=== PATIENT | male | born 1970 | race Hispanic/Latino ===

== ENCOUNTER 2018-04-29 11:16 | Emergency (ER) | payer OTHER ==
[~2018-04-29] VITALS: Ht 182.9 cm; Wt 87.3 kg
[~2018-04-29 11:16] MED LIST: FLEXERIL OR; LORTAB5 OR; NAPROSYN500 MG OR; NAPROXEN500 MG OR; NO HOME MEDS; SOMA350 MG PO; TYLENOL # 31 TA1 PO; ULTRAM50 MG OR
[2018-04-29 11:28] VITALS: BP 120/67
[2018-04-29 11:51] LABS: HEMATOCRIT 37.6 % (39.0-50.0); HEMOGLOBIN 12.5 g/dl (14.0-18.0); IMMATURE GRANULOCYTES 0.2 % (0.0-1.0); MEAN CELL VOLUME 92.4 fL CALC (80.0-100.0); MEAN CORPUSCULAR HGB 30.7 pG CALC (26.0-32.0); MEAN CORPUSCULAR HGB CONC 33.2 g/L CALC (32.0-36.0); NEUT# 2.14 thou/uL (1.82-7.42); RED BLOOD COUNT 4.07 mill/uL (4.70-6.10); RED CELL DISTRI WIDTH 12.4 % (11.5-15.5)
[2018-04-29 12:10] LABS: ALKALINE PHOSPHATASE 47 u/l (38-126); ANION GAP 9 (6-22 (CALC)); BILIRUBIN, TOTAL 0.5 mg/dL (0.0-1.4); BUN 12 mg/dL (9-20); BUN/CREATININE RATIO 19 (12-20 (CALC)); CARBON DIOXIDE 23 mmol/l (22-30); CHLORIDE 114 mmol/l (95-108); CREATININE 0.7 mg/dL (0.7-1.3); GFR > 60 ML/MIN (>=60 (CALC)); GFR FOR AFR.AMER. > 60 ML/MIN (>=60 (CALC)); POTASSIUM 3.6 mmol/l (3.5-5.1); SGOT/AST 10 u/l (17-59); SGPT/ALT 35 u/l (21-72); SODIUM 143 mmol/l (137-146); TOTAL PROTEIN 5.9 g/dL (6.3-8.2)
[2018-04-29 12:21] LABS: MYOGLOBIN 15 ng/mL (0 - 121)
[2018-04-29 12:53] LABS: ALBUMIN 3.3 g/dL (3.2-5.0)
== END 2018-04-29 13:51 | disposition home or self-care (01) | DRG 552 ==
LOC: ED 11:16
PROVIDERS: Emergency Medicine
DX: M54.6 Pain in thoracic spine (principal); G89.29 Other chronic pain; R55 Syncope and collapse

== ENCOUNTER 2021-08-26 23:36 | Emergency (ER) | payer OTHER ==
[~2021-08-26] VITALS: Ht 182.9 cm; Wt 88.0 kg
[2021-08-27] MEDS ORDERED: CYCLOBENZAPRINE10 MG PO (01:03)
[2021-08-27] MEDS ORDERED: NAPROXEN500 MG PO (01:03)
[2021-08-27 01:08] VITALS: BP 145/86
== END 2021-08-27 01:14 | disposition home or self-care (01) | DRG 563 ==
LOC: ED 23:36
DX: S83.92XA Sprain of unspecified site of left knee, initial encounter (principal); S80.02XA Contusion of left knee, initial encounter; M54.6 Pain in thoracic spine; V40.5XXA Car driver injured in collision with pedestrian or animal in traffic accident, initial encounter

== ENCOUNTER 2021-10-07 10:42 | Emergency (ER) | payer OTHER ==
[~2021-10-07] VITALS: Ht 30.5 cm; Wt 89.1 kg
[~2021-10-07 10:42] MED LIST changes: +CYCLOBENZAPRINE10 MG PO; +NAPROXEN500 MG PO
[2021-10-07 11:27] LABS: HEMATOCRIT 43.6 % (39.0-50.0); HEMOGLOBIN 13.9 g/dl (14.0-18.0); IMMATURE GRANULOCYTES 0.2 % (0.0-5.0); MEAN CELL VOLUME 96.9 fL CALC (80.0-100.0); MEAN CORPUSCULAR HGB 30.9 pG CALC (26.0-32.0); MEAN CORPUSCULAR HGB CONC 31.9 g/dL CAL (32.0-36.0); NEUT# 2.92 thou/uL (1.82-7.42); RED BLOOD COUNT 4.5 mill/uL (4.70-6.10); RED CELL DISTRI WIDTH 12.9 % (11.5-15.5)
[2021-10-07 12:48] LABS: ALBUMIN 3.6 g/dL (3.2-5.0); ALKALINE PHOSPHATASE 58 u/l (38-126); ANION GAP 10 (6-22 (CALC)); BILIRUBIN, TOTAL 0.5 mg/dL (0.0-1.4); BUN 11 mg/dL (9-20); BUN/CREATININE RATIO 14 (12-20 (CALC)); CARBON DIOXIDE 27 mmol/l (22-30); CHLORIDE 108 mmol/l (95-108); CREATININE 0.8 mg/dL (0.7-1.3); GFR > 60 ML/MIN (>=60 (CALC)); GFR FOR AFR.AMER. > 60 ML/MIN (>=60 (CALC)); POTASSIUM 3.6 mmol/l (3.5-5.1); SODIUM 142 mmol/l (137-146); TOTAL PROTEIN 6.8 g/dL (6.3-8.2)
[2021-10-07 12:49] LABS: SGOT/AST 23 u/l (17-59)
[2021-10-07] MEDS ORDERED: ZPAK PO (14:53)
[2021-10-07 14:58] VITALS: BP 96/63
== END 2021-10-07 15:13 | disposition home or self-care (01) ==
LOC: ED 10:42
PROVIDERS: Family Medicine
DX: R07.9 Chest pain, unspecified (principal); J06.9 Acute upper respiratory infection, unspecified; R00.1 Bradycardia, unspecified; I95.9 Hypotension, unspecified; Z20.822 Contact with and (suspected) exposure to COVID-19

== ENCOUNTER 2024-04-24 08:58 | Day surgery (SDC) | payer SELFPAY ==
[~2024-04-24] VITALS: Ht 170.2 cm; Wt 86.6 kg
[~2024-04-24 08:58] MED LIST changes: +ZPAK PO
[2024-04-24] MEDS ORDERED: FAMOTIDINE 10MG/ML 2ML SDV IV ONE (10:15)
[2024-04-24] MEDS ORDERED: LACTATED RINGER'S 1,000 ML IV ONE (10:15)
[2024-04-24 12:27] VITALS: BP 100/68
[2024-04-24] MEDS ORDERED: LIDOCAINE HCL 2% 2ML SDV IV ONE (12:43)
[2024-04-24] MEDS ORDERED: PROPOFOL 200 MG/20 ML VIAL IV ONE (12:43)
[2024-04-24] MEDS ORDERED: GLYCOPYRROLATE 0.2 MG/ML IV ONE (12:43)
== END 2024-04-24 12:35 | disposition home or self-care (01) | DRG 951 ==
LOC: ENDO 08:58
PROVIDERS: ATTEND Internal Medicine Gastroenterology
PROC: 0DBH8ZX Excision of Cecum, Via Natural or Artificial Opening Endoscopic, Diagnostic (ICD-10-PCS; principal; 2024-04-24)
DX: Z12.11 Encounter for screening for malignant neoplasm of colon (principal); D12.0 Benign neoplasm of cecum; K64.8 Other hemorrhoids